=== PATIENT | female | born 1995 | race Caucasian/White ===

== ENCOUNTER 2018-10-24 16:40 | Inpatient (IN) ==
--- NOTE | 2018-10-24 16:49 | Emergency Department Note ---
Disposition Clinical Impression: Suicidal ideation Depression Qualifiers: Depression Type: unspecified Qualified Code(s): F32.9 - Major depressive disorder, single episode, unspecified Disposition: Admitted As Inpatient Time of Disposition: 21:00 General Adult HPI - General Stated complaint: SI Time Seen by Provider: 10/24/18 16:44 - Related Data Home Medications Medication Instructions Recorded Confirmed No Known Home Drugs 10/24/18 10/24/18 Allergies Allergy/AdvReac Type Severity Reaction Status Date / Time No Known Allergies Allergy Verified 08/26/18 08:07 Past Medical History - Past Medical History Medical history: Reports: non-contributory Surgical history: Reports: non-contributory, other Psychiatric history: Reports: prior suicide attempt, previous psychiatric hospitalization TEA TASTER history: Reports: no TEA TASTER history - Social History Smoking Status: Current every day smoker Smokeless Tobacco Status: No Alcohol use: Reports: none Drug use: Reports: marijuana Course Vital Signs Temperature 98.6 F 10/24/18 16:48 Pulse Rate 78 10/24/18 16:48 Respiratory Rate 14 10/24/18 16:48 Blood Pressure 118/67 10/24/18 16:48 O2 Sat by Pulse Oximetry 98 10/24/18 16:48 Temperature 98.6 F 10/24/18 16:48 Pulse Rate 78 10/24/18 20:24 Respiratory Rate 16 10/24/18 20:24 Blood Pressure 103/71 10/24/18 20:24 O2 Sat by Pulse Oximetry 97 10/24/18 20:24 Oxygen Delivery Oxygen Delivery Room Air Medical Decision Making - Lab Data Result diagrams: 10/24/18 17:21 10/24/18 17:21 Lab Results 10/24/18 10/24/18 10/24/18 Range/Units 16:44 17:21 17:21 WBC 10.6 (4.3-11.1) K/mcL RBC 4.87 (3.82-4.97) M/mcL Hgb 14.9 (11.5-15.4) g/dL Hct 42.9 (35.3-44.9) % MCV 88.1 (83.0-100.0) fL MCH 30.6 (28.0-33.3) pg MCHC 34.7 (31.6-35.5) g/dL RDW 12.7 (11.5-14.5) % Plt Count 211 (140-400) K/mcL MPV 10.9 (9.4-12.4) fL Immature Gran % 0.3 (0-4) % Seg Neutrophils % 71.9 % Lymphocytes % 20.5 % Monocytes % 5.6 % Eosinophils % 1.1 % Basophils % 0.6 % Neutrophils # 7.6 (1.6-8.9) K/mcL Lymphocytes # 2.2 (0.6-4.6) K/mcL Monocytes # 0.6 (0.0-1.3) K/mcL Eosinophils # 0.1 (0.0-0.6) K/mcL Basophils # 0.1 (0.0-0.2) K/mcL Sodium 138 (136-145) mEq/L Potassium 3.5 (3.5-5.1) mEq/L Chloride 106 (98-107) mEq/L Carbon Dioxide 22 L (23-29) mEq/L BUN 12 (6-20) mg/dL Creatinine 0.76 (0.60-1.20) mg/dL Est GFR ( Amer) > 60 (> 60) Est GFR (Non-Af Amer) > 60 (> 60) BUN/Creatinine Ratio 16 (6-26) Glucose 101 (70-105) mg/dL Calculated Osmolality 286 (280-300) Calcium 9.1 (8.6-10.3) mg/dL Urine Color (Yellow) Urine Clarity (Clear) Urine pH (5.0-8.0) pH Units Ur Specific [place] (1.010-1.025) Urine Protein (Neg-Trace) mg/dL Urine Glucose (UA) (Normal) mg/dL Urine Ketones (Negative) mg/dL Urine Blood (Negative) Urine Nitrite (Negative) Urine Bilirubin (Negative) Urine Urobilinogen (Normal) mg/dL Ur Leukocyte Esterase (Negative) Urine Microscopic RBC (0-3) per hpf Urine Microscopic WBC (0-3) per hpf Ur Squamous Epith Cells (None-Few) per lpf Urine Bacteria (None-Few) per hpf Hyaline Casts (None-Few) per lpf Urine Test (Negative) Salicylates < 2.5 L (15.0-30.0) mg/dL Urine Opiates Screen Negative (Aqewcl=390) ng/mL Acetaminophen < 10 L (10-20) mcg/mL Ur Barbiturates Screen Negative (Legjjr=071) ng/mL Ur Phencyclidine Scrn Negative (Cutoff=25) ng/mL Ur Amphetamines Screen Positive H (Vdczwg=6719) ng/mL U Benzodiazepines Scrn Negative (Otqgeg=636) ng/mL Urine Cocaine Screen Negative (Cutoff= 300) ng/mL U Marijuana (THC) Screen Positive H (Cutoff = 50) ng/mL Ur Drug Screen Interp See Below Ethyl Alcohol < 10 (Less than 10) mg/dL 10/24/18 10/24/18 Range/Units 17:53 17:53 WBC (4.3-11.1) K/mcL RBC (3.82-4.97) M/mcL Hgb (11.5-15.4) g/dL Hct (35.3-44.9) % MCV (83.0-100.0) fL MCH (28.0-33.3) pg MCHC (31.6-35.5) g/dL RDW (11.5-14.5) % Plt Count (140-400) K/mcL MPV (9.4-12.4) fL Immature Gran % (0-4) % Seg Neutrophils % % Lymphocytes % % Monocytes % % Eosinophils % % Basophils % % Neutrophils # (1.6-8.9) K/mcL Lymphocytes # (0.6-4.6) K/mcL Monocytes # (0.0-1.3) K/mcL Eosinophils # (0.0-0.6) K/mcL Basophils # (0.0-0.2) K/mcL Sodium (136-145) mEq/L Potassium (3.5-5.1) mEq/L Chloride (98-107) mEq/L Carbon Dioxide (23-29) mEq/L BUN (6-20) mg/dL Creatinine (0.60-1.20) mg/dL Est GFR ( Amer) (> 60) Est GFR (Non-Af Amer) (> 60) BUN/Creatinine Ratio (6-26) Glucose (70-105) mg/dL Calculated Osmolality (280-300) Calcium (8.6-10.3) mg/dL Urine Color Dark Yellow (Yellow) Urine Clarity Clear (Clear) Urine pH 6.0 (5.0-8.0) pH Units Ur Specific [place] 1.018 (1.010-1.025) Urine Protein Negative (Neg-Trace) mg/dL Urine Glucose (UA) Normal (Normal) mg/dL Urine Ketones >=160 H (Negative) mg/dL Urine Blood Large H (Negative) Urine Nitrite Negative (Negative) Urine Bilirubin Moderate H (Negative) Urine Urobilinogen Normal (Normal) mg/dL Ur Leukocyte Esterase Negative (Negative) Urine Microscopic RBC 3-5 H (0-3) per hpf Urine Microscopic WBC 0-3 (0-3) per hpf Ur Squamous Epith Cells Many H (None-Few) per lpf Urine Bacteria None Seen (None-Few) per hpf Hyaline Casts None Seen (None-Few) per lpf Urine Test Negative (Negative) Salicylates (15.0-30.0) mg/dL Urine Opiates Screen (Pmhlyg=169) ng/mL Acetaminophen (10-20) mcg/mL Ur Barbiturates Screen (Hioyoj=388) ng/mL Ur Phencyclidine Scrn (Cutoff=25) ng/mL Ur Amphetamines Screen (Piyldu=7868) ng/mL U Benzodiazepines Scrn (Opoevf=185) ng/mL Urine Cocaine Screen (Cutoff= 300) ng/mL U Marijuana (THC) Screen (Cutoff = 50) ng/mL Ur Drug Screen Interp Ethyl Alcohol (Less than 10) mg/dL Attestation Statement - Attestation Attestation: I examined this patient and my medical decision-making was reviewed with the [facility] Physician. I agree with the documented findings, disposition and treatment plan as described except to the extent set forth below. Patient presents to the ED with a chief complaint of suicidal thoughts. Patient apparently held a knife to her abdomen today. No history of similar. On exam she is, cooperative no distress. Plan. Medical clearance and evaluation by Anthony maurer. Patient is medically cleared at this time. 1 a consult pending. Admitted to [facility].
[2018-10-24] MEDS ORDERED: Ibuprofen 600 MG TABLET PO ONE (17:02)
[2018-10-24] MEDS ORDERED: Acetaminophen 325 MG TABLET PO ONE (17:02)
--- NOTE | 2018-10-24 17:29 | Emergency Department Note ---
Disposition Clinical Impression: Suicidal ideation Depression Qualifiers: Depression Type: unspecified Qualified Code(s): F32.9 - Major depressive disorder, single episode, unspecified Disposition: Admitted As Inpatient Forms: ED Satisfaction Letter Time of Disposition: 20:29 Psych HPI - General Chief Complaint: ED Psychiatric Symptoms Stated Complaint: SI Time Seen by Provider: 10/24/18 16:44 Source: patient Mode of arrival: ambulatory Limitations: no limitations Nursing Notes Reviewed: Yes Vital Signs Reviewed: Yes - History of Present Illness HPI Narrative: 23 yo female with past medical history of depression presents to the emergency department via EMS with suicidal ideations. Patient states today she wanted to "cut herself with a knife" and told her grandmother to call EMS because she did not want herself or anybody else. She has been having some auditory hallucinations infrequently. She attempted to kill herself 3 weeks ago by cutting her right wrist. She wants help because she does not want to hurt herself at this time but she does not know how to continue on with life about killing herself. - Related Data Home Medications Medication Instructions Recorded Confirmed No Known Home Drugs 10/24/18 10/24/18 Allergies Allergy/AdvReac Type Severity Reaction Status Date / Time No Known Allergies Allergy Verified 08/26/18 08:07 All systems ED: reviewed and negative except as stated. Review of Systems: As Per HPI Constitutional: Denies: fever Cardiovascular: Denies: chest pain Respiratory: Denies: cough, dyspnea, wheezes Gastrointestinal: Denies: abdominal pain, nausea, vomiting Genitourinary: Denies: dysuria, hematuria Musculoskeletal: Denies: back pain, neck pain Integumentary: Denies: rash Neurological: Denies: headache Psychiatric: Reports: depression, suicidal thoughts, homicidal thoughts, auditory hallucinations. Denies: visual hallucinations Past Medical History - Past Medical History Attestation: Yes The following information was validated with the patient. Source: patient Medical history: Reports: other Surgical history: Reports: non-contributory, other Psychiatric history: Reports: prior suicide attempt, previous psychiatric hospitalization [employer] history: Reports: spontaneous - Social History Smoking Status: Current every day smoker Smokeless Tobacco Status: No Alcohol use: Reports: none Drug use: Reports: marijuana Physical Exam - General Limitations: no limitations General appearance: alert - Head Head exam: atraumatic, normocephalic - Eye Eye exam: Present: normal appearance, EOMI - ENT ENT exam: normal exam - Neck Neck exam: Present: normal inspection. Absent: tenderness, lymphadenopathy - Chest Chest inspection: Present: normal inspection. Absent: tenderness, rash - Respiratory Respiratory exam: Present: normal lung sounds bilaterally - Cardiovascular Cardiovascular exam: Present: regular rate, normal rhythm - Abdominal Exam Abdominal exam: Present: soft, Non-Tender. Absent: distention, guarding, rebound, rigidity - Extremities Exam Extremities exam: Present: other (Old linear lacerations on right wrist without surrounding erythema or drainage. Scrapes noted on bilateral lower extremities.) - Neurological Exam Neurological exam: Present: alert, oriented X3 - Psychiatric Psychiatric exam: Present: depressed, flat affect, homicidal ideation, suicidal ideation - Skin Skin exam: Present: warm, dry Course Vital Signs Temperature 98.6 F 10/24/18 16:48 Pulse Rate 78 10/24/18 16:48 Respiratory Rate 14 10/24/18 16:48 Blood Pressure 118/67 10/24/18 16:48 O2 Sat by Pulse Oximetry 98 10/24/18 16:48 Temperature 98.6 F 10/24/18 16:48 Pulse Rate 78 10/24/18 20:24 Respiratory Rate 16 10/24/18 20:24 Blood Pressure 103/71 10/24/18 20:24 O2 Sat by Pulse Oximetry 97 10/24/18 20:24 Oxygen Delivery Oxygen Delivery Room Air Psych - MDM Narrative Medical decision making narrative: Patient presents with suicidal ideations. [place] slip has been filled out and lab work will be done before consulting with [facility]. patient has no requests at this time except for some bodyaches, ibuprofen and Tylenol will be given. 2030 - patient's labs have resulted and should she was positive for meth and marijuana. She was evaluated by [facility] and they have agreed with keeping her here for further workup of her suicidal ideations. - Lab Data Result diagrams: 10/24/18 17:21 10/24/18 17:21 Lab Results 10/24/18 10/24/18 10/24/18 Range/Units 16:44 17:21 17:21 WBC 10.6 (4.3-11.1) K/mcL RBC 4.87 (3.82-4.97) M/mcL Hgb 14.9 (11.5-15.4) g/dL Hct 42.9 (35.3-44.9) % MCV 88.1 (83.0-100.0) fL MCH 30.6 (28.0-33.3) pg MCHC 34.7 (31.6-35.5) g/dL RDW 12.7 (11.5-14.5) % Plt Count 211 (140-400) K/mcL MPV 10.9 (9.4-12.4) fL Immature Gran % 0.3 (0-4) % Seg Neutrophils % 71.9 % Lymphocytes % 20.5 % Monocytes % 5.6 % Eosinophils % 1.1 % Basophils % 0.6 % Neutrophils # 7.6 (1.6-8.9) K/mcL Lymphocytes # 2.2 (0.6-4.6) K/mcL Monocytes # 0.6 (0.0-1.3) K/mcL Eosinophils # 0.1 (0.0-0.6) K/mcL Basophils # 0.1 (0.0-0.2) K/mcL Sodium 138 (136-145) mEq/L Potassium 3.5 (3.5-5.1) mEq/L Chloride 106 (98-107) mEq/L Carbon Dioxide 22 L (23-29) mEq/L BUN 12 (6-20) mg/dL Creatinine 0.76 (0.60-1.20) mg/dL Est GFR ( Amer) > 60 (> 60) Est GFR (Non-Af Amer) > 60 (> 60) BUN/Creatinine Ratio 16 (6-26) Glucose 101 (70-105) mg/dL Calculated Osmolality 286 (280-300) Calcium 9.1 (8.6-10.3) mg/dL Urine Color (Yellow) Urine Clarity (Clear) Urine pH (5.0-8.0) pH Units Ur Specific [place] (1.010-1.025) Urine Protein (Neg-Trace) mg/dL Urine Glucose (UA) (Normal) mg/dL Urine Ketones (Negative) mg/dL Urine Blood (Negative) Urine Nitrite (Negative) Urine Bilirubin (Negative) Urine Urobilinogen (Normal) mg/dL Ur Leukocyte Esterase (Negative) Urine Microscopic RBC (0-3) per hpf Urine Microscopic WBC (0-3) per hpf Ur Squamous Epith Cells (None-Few) per lpf Urine Bacteria (None-Few) per hpf Hyaline Casts (None-Few) per lpf Urine Test (Negative) Salicylates < 2.5 L (15.0-30.0) mg/dL Urine Opiates Screen Negative (Krdfer=742) ng/mL Acetaminophen < 10 L (10-20) mcg/mL Ur Barbiturates Screen Negative (Krupeu=289) ng/mL Ur Phencyclidine Scrn Negative (Cutoff=25) ng/mL Ur Amphetamines Screen Positive H (Danbwf=1452) ng/mL U Benzodiazepines Scrn Negative (Rhtmfv=980) ng/mL Urine Cocaine Screen Negative (Cutoff= 300) ng/mL U Marijuana (THC) Screen Positive H (Cutoff = 50) ng/mL Ur Drug Screen Interp See Below Ethyl Alcohol < 10 (Less than 10) mg/dL 10/24/18 10/24/18 Range/Units 17:53 17:53 WBC (4.3-11.1) K/mcL RBC (3.82-4.97) M/mcL Hgb (11.5-15.4) g/dL Hct (35.3-44.9) % MCV (83.0-100.0) fL MCH (28.0-33.3) pg MCHC (31.6-35.5) g/dL RDW (11.5-14.5) % Plt Count (140-400) K/mcL MPV (9.4-12.4) fL Immature Gran % (0-4) % Seg Neutrophils % % Lymphocytes % % Monocytes % % Eosinophils % % Basophils % % Neutrophils # (1.6-8.9) K/mcL Lymphocytes # (0.6-4.6) K/mcL Monocytes # (0.0-1.3) K/mcL Eosinophils # (0.0-0.6) K/mcL Basophils # (0.0-0.2) K/mcL Sodium (136-145) mEq/L Potassium (3.5-5.1) mEq/L Chloride (98-107) mEq/L Carbon Dioxide (23-29) mEq/L BUN (6-20) mg/dL Creatinine (0.60-1.20) mg/dL Est GFR ( Amer) (> 60) Est GFR (Non-Af Amer) (> 60) BUN/Creatinine Ratio (6-26) Glucose (70-105) mg/dL Calculated Osmolality (280-300) Calcium (8.6-10.3) mg/dL Urine Color Dark Yellow (Yellow) Urine Clarity Clear (Clear) Urine pH 6.0 (5.0-8.0) pH Units Ur Specific [place] 1.018 (1.010-1.025) Urine Protein Negative (Neg-Trace) mg/dL Urine Glucose (UA) Normal (Normal) mg/dL Urine Ketones >=160 H (Negative) mg/dL Urine Blood Large H (Negative) Urine Nitrite Negative (Negative) Urine Bilirubin Moderate H (Negative) Urine Urobilinogen Normal (Normal) mg/dL Ur Leukocyte Esterase Negative (Negative) Urine Microscopic RBC 3-5 H (0-3) per hpf Urine Microscopic WBC 0-3 (0-3) per hpf Ur Squamous Epith Cells Many H (None-Few) per lpf Urine Bacteria None Seen (None-Few) per hpf Hyaline Casts None Seen (None-Few) per lpf Urine Test Negative (Negative) Salicylates (15.0-30.0) mg/dL Urine Opiates Screen (Tibvlo=745) ng/mL Acetaminophen (10-20) mcg/mL Ur Barbiturates Screen (Sggovy=389) ng/mL Ur Phencyclidine Scrn (Cutoff=25) ng/mL Ur Amphetamines Screen (Vrmreo=6370) ng/mL U Benzodiazepines Scrn (Eklqwb=180) ng/mL Urine Cocaine Screen (Cutoff= 300) ng/mL U Marijuana (THC) Screen (Cutoff = 50) ng/mL Ur Drug Screen Interp Ethyl Alcohol (Less than 10) mg/dL Psychiatric Medical Clearance - Medical Clearance Checklist Medical History: No Social History Section defined Current Vitals: Last Vital Signs Temp 98.6 F 10/24/18 16:48 Pulse 78 10/24/18 20:24 Resp 16 10/24/18 20:24 BP 103/71 10/24/18 20:24 Pulse Ox 97 10/24/18 20:24 Psychiatric Lab Panel: Drug Levels and Toxicity 10/24/18 10/24/18 16:44 17:21 Urine Opiates Screen Negative Acetaminophen < 10 L Ur Barbiturates Screen Negative Ur Phencyclidine Scrn Negative Ur Amphetamines Screen Positive H U Benzodiazepines Scrn Negative Urine Cocaine Screen Negative U Marijuana (THC) Screen Positive H Ethyl Alcohol < 10 Abnormal Labs: Abnormal lab results Carbon Dioxide 22 mEq/L (23-29) L 10/24/18 17:21 >=160 mg/dL (Negative) H 10/24/18 17:53 Large (Negative) H 10/24/18 17:53 Moderate (Negative) H 10/24/18 17:53 3-5 per hpf (0-3) H 10/24/18 17:53 Ur Squamous Epith Cells Many per lpf (None-Few) H 10/24/18 17:53 Salicylates < 2.5 mg/dL (15.0-30.0) L 10/24/18 17:21 Acetaminophen < 10 mcg/mL (10-20) L 10/24/18 17:21 Ur Amphetamines Screen Positive ng/mL (Apfffe=0539) H 10/24/18 16:44 U Marijuana (THC) Screen Positive ng/mL (Cutoff = 50) H 10/24/18 16:44 Statement of Medical Clearance: I have evaluated the patient, reviewed diagnostic information, and certify that the patient's medical condition is sufficiently stable that transfer to the psychiatric unit does not pose a significant risk of deterioration.
[2018-10-24 17:34] LABS: Basophils # 0.1 K/mcL (0.0-0.2); Basophils % 0.6 %; Eosinophils # 0.1 K/mcL (0.0-0.6); Eosinophils % 1.1 %; Hematocrit 42.9 % (35.3-44.9); Hemoglobin 14.9 g/dL (11.5-15.4); Immature Granulocytes % 0.3 % (0-4); Lymphocytes # 2.2 K/mcL (0.6-4.6); Lymphocytes % 20.5 %; Mean Corpuscular HGB Conc 34.7 g/dL (31.6-35.5); Mean Corpuscular Hemoglobin 30.6 pg (28.0-33.3); Mean Corpuscular Volume 88.1 fL (83.0-100.0); Mean Platelet Volume 10.9 fL (9.4-12.4); Monocytes # 0.6 K/mcL (0.0-1.3); Monocytes % 5.6 %; Neutrophils # 7.6 K/mcL (1.6-8.9); Platelet Count 211 K/mcL (140-400); Red Blood Count 4.87 M/mcL (3.82-4.97); Red Cell Distribution Width 12.7 % (11.5-14.5); Segmented Neutrophils % 71.9 %; White Blood Count 10.6 K/mcL (4.3-11.1)
[2018-10-24 17:58] LABS: Acetaminophen < 10 mcg/mL (10-20); BUN/Creatinine Ratio 16 (6-26); Blood Urea Nitrogen 12 mg/dL (6-20); Calcium 9.1 mg/dL (8.6-10.3); Carbon Dioxide 22 mEq/L (23-29); Chloride 106 mEq/L (98-107); Ethanol < 10 mg/dL (Less than 10); Glucose 101 mg/dL (70-105); Osmolality,Calculated 286 (280-300); Potassium 3.5 mEq/L (3.5-5.1); Salicylate < 2.5 mg/dL (15.0-30.0); Sodium 138 mEq/L (136-145); eGFR For African Americans > 60 (> 60); eGFR For Non-African Americans > 60 (> 60)
[2018-10-24 18:18] LABS: Bilirubin,Urine Moderate (Negative); Blood,Urine Large (Negative); Clarity,Urine Clear (Clear); Color,Urine Dark Yellow (Yellow); Glucose,Urine (UA) Normal (Normal); Ketones,Urine >=160 mg/dL (Negative); Leukocyte Esterase,Urine Negative (Negative); Nitrite,Urine Negative (Negative); Protein,Urine Negative (Neg-Trace); Specific Gravity,Urine 1.018 (1.010-1.025); Urobilinogen,Urine Normal (Normal)
[2018-10-24 18:20] LABS: Bacteria,Urine None Seen per hpf (None-Few); Hyaline Casts,Urine None Seen per lpf (None-Few); Squamous Epithelial Cell,Urine Many per lpf (None-Few); WBC,Urine 0-3 per hpf (0-3)
[2018-10-24 18:44] LABS: Amphetamine Screen,Urine Positive ng/mL (Cutoff=1000); Barbiturate Screen,Urine Negative ng/mL (Cutoff=200); Benzodiazepines Screen,Urine Negative ng/mL (Cutoff=200); Cannabinoid Screen,Urine Positive ng/mL (Cutoff = 50); Cocaine Screen,Urine Negative ng/mL (Cutoff= 300); Opiate Screen,Urine Negative ng/mL (Cutoff=300); Phencyclidine Screen,Urine Negative ng/mL (Cutoff=25)
[2018-10-24] MEDS ORDERED: hydrOXYzine pamoate 25 MG CAPSULE PO PRN (21:04)
[2018-10-24] MEDS ORDERED: Mag Hydrox/Al Hydrox/Simeth 30 ML UDC PO PRN (21:04)
[2018-10-24] MEDS ORDERED: traZODone 50 MG TABLET PO PRN (21:04)
[2018-10-24] MEDS ORDERED: MOM Conc 10 ML UD.LIQ PO PRN (21:04)
[2018-10-24] MEDS ORDERED: Haloperidol Lactate 5 MG/ML VIAL IM PRN (21:04)
[2018-10-24] MEDS ORDERED: Acetaminophen 325 MG TABLET PO PRN (21:04)
[2018-10-24] MEDS ORDERED: *HR* LORazepam 1 MG TABLET PO PRN (21:04)
[2018-10-24] MEDS ORDERED: *HR* LORazepam 2 MG/ML VIAL IM PRN (21:04)
[2018-10-25] MEDS: Nicotine 2 MG GUM BC PRN ×2 (09:45→18:43)
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
[2018-10-26] MEDS: Nicotine 2 MG GUM BC PRN ×2 (10:59→20:34)
--- NOTE | 2018-10-26 12:40 | Psychiatry Progress Note ---
Date of Encounter: 10/26/18 Time of Encounter: 12:38 Subjective Interval history: Client reports she is feeling much better. No side effects to Zoloft. Denies SI or thoughts of cutting today. Eating and sleeping well. Apprehensive about leaving the hospital but recognizes she is improved. Still plans to live with aunt. Aunt intends to visit the unit tonight and they will discuss the living situation more in depth. Client can be set up with outpatient services tomorrow after the clinics open. Will tentatively plan on discharge tomorrow after linkage established and housing situation verified with aunt. Review of Systems Constitutional: Denies: fever, chills, weakness, weight change Eyes: Denies: eye pain, vision change Ears, Nose, Throat: Denies: ear pain, throat pain, dental pain, hearing loss, congestion Cardiovascular: Denies: chest pain, palpitations, dyspnea on exertion Respiratory: Denies: cough, dyspnea, wheezes Gastrointestinal: Denies: abdominal pain, nausea, vomiting, diarrhea, constipation Musculoskeletal: Denies: joint swelling, joint pain Neurological: Denies: headache, weakness, numbness, memory loss Results - Vital Signs Vital Signs: Temp Pulse Resp BP Pulse Ox 98.0 F 76 16 111/80 98 10/26/18 09:00 10/26/18 09:00 10/26/18 09:00 10/26/18 09:00 10/26/18 09:00 Assessment and Plan (1) Major depress dis, severe Current visit: Yes Status: Acute Plan: Continue hospitalization, Close observation, Suicide Precautions per unit protocol, Encourage participation in unit milieu, Group Therapy, Monitor sleep, Monitor appetite Risks, benefits, side effects, alternatives discussed w/pt: Yes Patient agreeable to treatment: Yes Consult Discharge Plan - Plan Referrals: NONE,PCP [Primary Care Provider] - Psychiatry Exam - Constitutional Vitals: Temp Pulse Resp BP Pulse Ox 98.0 F 76 16 111/80 98 10/26/18 09:00 10/26/18 09:00 10/26/18 09:00 10/26/18 09:00 10/26/18 09:00 General appearance: age & developmentally appropriate, well-groomed, well- nourished - Musculoskeletal Gait: normal Station: relaxed Strength & Tone: normal for patient - Psychiatric Patient Orientation: Yes Person, Yes Time, Yes Place Level of alertness: Alert Behavior: calm, cooperative Psychomotor activity: Normal Eye Contact: Maintains Eye Contact Mood Description: Depressed Affect description: full range Speech Volume: Normal Speech pattern: normal rate, normal rhythm, normal tone, fluent, spontaneous Language & Vocabulary: consistent with education Thought Process: Linear, Goal Oriented Thought Content: No Suicidal ideation, No Homicidal ideation, No Overt delusions Perceptual Disturbances: No Auditory hallucinations, No Visual hallucinations Attention Span Ability: Capable of Focused Attention Memory Description: Grossly Intact Patient Reliability: Reliable Historian Fund of knowledge: Yes abstraction ability, Yes aware of current events Intelligence Estimate: Average Judgment: Fair Insight: Partial
[2018-10-27 09:24] VITALS: BP 99/70
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
== END 2018-10-27 13:10 | disposition home or self-care (01) | DRG 751 ==
LOC: EMEROOARM 16:40 → 1ANU 20:32
PROVIDERS: ADMIT Psychiatry & Neurology Psychiatry; ATTEND Psychiatry & Neurology Psychiatry

== ENCOUNTER → 2019-11-15 21:48 | Observation (INO) ==
[2019-11-15 17:23] VITALS: BP 123/75
[2019-11-15 21:21] LABS: Bacteria,Urine Few per hpf (None-Few); Bilirubin,Urine Negative (Negative); Blood,Urine Negative (Negative); Clarity,Urine Turbid (Clear); Color,Urine Yellow (Yellow); Glucose,Urine (UA) Normal (Normal); Ketones,Urine Negative (Negative); Leukocyte Esterase,Urine Negative (Negative); Mucus,Urine Many per lpf (None-Few); Nitrite,Urine Negative (Negative); PH,Urine 6.5 pH Units (5.0-8.0); Protein,Urine Trace mg/dL (Neg-Trace); RBC,Urine 0-3 per hpf (0-3); Specific Gravity,Urine 1.021 (1.010-1.025); Squamous Epithelial Cell,Urine Few per hpf (None-Few); Urobilinogen,Urine Normal (Normal); WBC,Urine 0-3 per hpf (0-3)
[~2019-11-15 21:48] MED LIST: Betamethasone Acet/SodPhos 30 MG/5 ML VIAL IM SCH
== END | disposition home or self-care (01) ==
LOC: 1NENULAB
PROVIDERS: ADMIT Student in an Organized Health Care Education/Training Program; ATTEND Student in an Organized Health Care Education/Training Program

== ENCOUNTER → 2019-12-11 21:00 | Observation (INO) ==
[2019-12-11 20:12] LABS: Bacteria,Urine Few per hpf (None-Few); Bilirubin,Urine Negative (Negative); Blood,Urine Negative (Negative); Calcium Oxalate Crystals,Urine Present; Clarity,Urine Turbid (Clear); Color,Urine Light-Yellow (Yellow); Glucose,Urine (UA) Normal (Normal); Ketones,Urine 10 mg/dL (Negative); Leukocyte Esterase,Urine Large (Negative); Mucus,Urine Few per lpf (None-Few); Nitrite,Urine Negative (Negative); Protein,Urine Negative (Neg-Trace); Specific Gravity,Urine 1.011 (1.010-1.025); Squamous Epithelial Cell,Urine Few per hpf (None-Few); Urobilinogen,Urine Normal (Normal); WBC,Urine 50-100 per hpf (0-3)
== END | disposition home or self-care (01) ==
LOC: 1NENULAB
PROVIDERS: ADMIT Obstetrics & Gynecology; ATTEND Obstetrics & Gynecology

== ENCOUNTER → 2020-02-08 23:10 | Observation (INO) | END | disposition home or self-care (01) | LOC: 1NENULAB | PROVIDERS: ADMIT Obstetrics & Gynecology; ATTEND Obstetrics & Gynecology ==

== ENCOUNTER 2020-02-10 01:09 | Inpatient (IN) ==
[2020-02-10] MEDS ORDERED: Famotidine 20 MG/2 ML VIAL IVP PRN (01:50)
[2020-02-10] MEDS ORDERED: Metoclopramide 10 MG/2 ML VIAL IVP PRN (01:50)
[2020-02-10] MEDS ORDERED: Ondansetron 4 MG/2 ML VIAL IVP PRN ×2 (01:50→03:14)
[2020-02-10] MEDS ORDERED: *HR* FentaNYL (PF) 100 MCG/2 ML VIAL IVP PRN (01:50)
[2020-02-10] MEDS ORDERED: Naloxone 0.4 MG/ML INJ IVP PRN ×2 (01:50→03:14)
[2020-02-10] MEDS ORDERED: Lidocaine 1% 20 ML MDV INFILT PRN (01:50)
[2020-02-10] MEDS ORDERED: Ringers Solution, Lactated 1,000 ML IVC SCH (02:00)
[2020-02-10 02:23] LABS: Basophils # 0.1 K/mcL (0.0-0.2); Basophils % 0.3 %; Hematocrit 35.8 % (35.3-44.9); Immature Granulocytes % 2.2 % (0-4); Lymphocytes % 4.2 %; Mean Corpuscular HGB Conc 33.5 g/dL (31.6-35.5); Mean Corpuscular Hemoglobin 29.7 pg (28.0-33.3); Mean Corpuscular Volume 88.6 fL (83.0-100.0); Mean Platelet Volume 10.3 fL (9.4-12.4); Monocytes # 1.7 K/mcL (0.0-1.3); Neutrophils # 20.7 K/mcL (1.6-8.9); Platelet Count 291 K/mcL (140-400); Red Blood Count 4.04 M/mcL (3.82-4.97); Red Cell Distribution Width 13.2 % (11.5-14.5); Segmented Neutrophils % 86.3 %
[2020-02-10 02:32] LABS: Amphetamine Screen,Urine Negative ng/mL (Cutoff=1000); Barbiturate Screen,Urine Negative ng/mL (Cutoff=200); Benzodiazepines Screen,Urine Negative ng/mL (Cutoff=200); Cannabinoid Screen,Urine Negative ng/mL (Cutoff = 50); Cocaine Screen,Urine Negative ng/mL (Cutoff= 300); Opiate Screen,Urine Negative ng/mL (Cutoff=300); Phencyclidine Screen,Urine Negative ng/mL (Cutoff=25)
[2020-02-10] MEDS ORDERED: Penicillin G Potassium 5,000,000 UNIT in 0.9 % Sodium Chloride Mini Bag 100 ML IVPB ONE (02:32)
[2020-02-10] MEDS ORDERED: Oxytocin 20 units/ LR 1000 mL 20 UNIT/1,000 ML BAG IVC SCH ×2 (02:45→10:06)
[2020-02-10] MEDS ORDERED: EPHEDrine 50 MG/ML VIAL IVP PRN (03:14)
[2020-02-10] MEDS ORDERED: Ropivacaine/PF 0.2% 20 ML VIAL EP ONE (03:14)
[2020-02-10] MEDS ORDERED: Epidural Premix (fent/bupiv) 110 ML EP SCH (03:15)
[2020-02-10] MEDS ORDERED: Penicillin G Potassium 2,500,000 UNIT/105 ML MLS IVPB SCH (07:00)
[2020-02-10] MEDS ORDERED: FLU Vac QV 20-21 (6Month+)/PF 0.5 ML SYRINGE IM ONE (08:00)
[2020-02-10] MEDS ORDERED: Prenatal Vit/FA 1 EACH TABLET PO SCH ×2 (10:06)
[2020-02-10] MEDS ORDERED: Measles/Mumps/Rubella Vacc 0.5 ML VIAL SQ PRN (10:06)
[2020-02-10] MEDS ORDERED: Rho Immune Globulin 1,500 UNIT SYRINGE IM PRN (10:06)
[2020-02-10] MEDS ORDERED: Acetaminophen 325 MG TABLET PO PRN (10:06)
[2020-02-10] MEDS: Ibuprofen 600 MG TABLET PO PRN (18:05)
[2020-02-11 06:55] LABS: Basophils # 0.1 K/mcL (0.0-0.2); Basophils % 0.4 %; Eosinophils # 0.1 K/mcL (0.0-0.6); Eosinophils % 0.4 %; Hematocrit 34.3 % (35.3-44.9); Hemoglobin 11.3 g/dL (11.5-15.4); Immature Granulocytes % 2.8 % (0-4); Lymphocytes # 1.4 K/mcL (0.6-4.6); Lymphocytes % 8.6 %; Mean Corpuscular HGB Conc 32.9 g/dL (31.6-35.5); Mean Corpuscular Hemoglobin 29.7 pg (28.0-33.3); Mean Corpuscular Volume 90.3 fL (83.0-100.0); Mean Platelet Volume 9.9 fL (9.4-12.4); Monocytes # 1.3 K/mcL (0.0-1.3); Monocytes % 8.2 %; Platelet Count 262 K/mcL (140-400); Red Cell Distribution Width 13.2 % (11.5-14.5); Segmented Neutrophils % 79.6 %; White Blood Count 16.3 K/mcL (4.3-11.1)
[2020-02-11 08:01] VITALS: BP 105/73
[2020-02-11] MEDS: Ibuprofen 600 MG TABLET PO PRN (09:05)
[2020-02-11] MEDS ORDERED: Lanolin 7 G OINT...G. TP PRN (09:09)
[2020-02-11] MEDS ORDERED: FLU Vac QV 20-21 (6Month+)/PF 0.5 ML SYRINGE IM ONE (10:36)
== END 2020-02-11 11:07 | disposition home or self-care (01) | DRG 807 ==
LOC: 1NENULAB → OBSVTOIN 01:09 → 1NENULAB 01:30 → 1NENUOBS 09:48
PROVIDERS: ADMIT Student in an Organized Health Care Education/Training Program; ATTEND Student in an Organized Health Care Education/Training Program